=== PATIENT | female | born 1950 | race Asian ===

== ENCOUNTER 2021-10-16 15:45 | Inpatient (IN) | payer SELFPAY ==
[~2021-10-16] VITALS: Ht 152.4 cm; Wt 47.2 kg
[2021-10-16] MEDS ORDERED: SODIUM CHLORIDE 0.9% 500 ML IV ONE (16:30)
[2021-10-16] MEDS ORDERED: MORPHINE SULFATE 4 MG/ML CPJ (NOT FOR IM USE) IV STA (16:49)
[2021-10-16 16:57] LABS: HEMATOCRIT. 40.8 % (36.0-48.0); HEMOGLOBIN. 13.3 g/dL (12.0-16.0); MEAN CORPUSCULAR HEMOGLOBIN 30.4 pg (28.0-32.0); MEAN CORPUSCULAR VOLUME 93.3 fL (81.0-99.0); MEAN PLATELET VOLUME 9.1 fl (7.4-10.4); PLATELET 207 x1000/uL (130-400); RED BLOOD CELL COUNT 4.38 mill/uL (4.2-5.4); RED CELL DISTRIBUTION WIDTH 13.1 % (11.6-14.6)
[2021-10-16] MEDS ORDERED: LABETALOL HCL VIAL 20 MG/4 ML VIAL IV ONE (17:00)
[2021-10-16 17:08] LABS: CHLORIDE 101 mEq/L (98-107)
[2021-10-16] MEDS ORDERED: LABETALOL HCL VIAL 20 MG/4 ML VIAL IV NR (17:15)
[2021-10-16] MEDS ORDERED: CEFTRIAXONE 1 G PREMIX 50 ML IV NR (17:30)
[2021-10-16 17:54] LABS: ETHANOL BLOOD < 10 mg/dL
[2021-10-16 17:58] LABS: PLATELET ESTIMATE NORMAL
[2021-10-16 18:04] LABS: CLARITY URINE CLEAR (CLEAR); COLOR URINE YELLOW (YELLOW); KETONES URINE NEGATIVE (NEGATIVE); LEUKOCYTE ESTERASE URINE NEGATIVE (NEGATIVE); NITRITE URINE NEGATIVE (NEGATIVE); OCCULT BLOOD URINE TRACE (NEGATIVE); PROTEIN URINE 2+ (NEGATIVE); UROBILINOGEN URINE 0.2 E.U./dL (0.2-1.0)
[2021-10-16 18:16] LABS: *AMPHETAMINES SCREEN URINE NEGATIVE (NEGATIVE); *BARBITURATES SCREEN URINE NEGATIVE (NEGATIVE); *BENZODIAZEPINES SCREEN URINE NEGATIVE (NEGATIVE); *COCAINE SCREEN URINE NEGATIVE (NEGATIVE); CANNABINOID URINE SCREEN NEGATIVE (NEGATIVE); METHADONE URINE SCREEN NEGATIVE (NEGATIVE); OPIATES URINE SCREEN NEGATIVE (NEGATIVE); PHENCYCLIDINE URINE SCREEN NEGATIVE (NEGATIVE)
[2021-10-16] MEDS ORDERED: SODIUM CHLORIDE 0.9% 1,000 ML IV ONE (19:45)
[2021-10-16] MEDS ORDERED: VANCOMYCIN 1G PREMIX 200 ML IV NR (19:45)
[2021-10-16] MEDS ORDERED: CEFTRIAXONE 1 G PREMIX 50 ML IV ONE (21:45)
[2021-10-16] MEDS ORDERED: DOCUSATE SODIUM 100MG CAPSULE PO PRN (22:45)
[2021-10-16] MEDS ORDERED: MAGNESIUM/ALUMINUM HYDROXIDE/SIMETHICONE 30ML UDC PO PRN (22:45)
[2021-10-16] MEDS ORDERED: NITROGLYCERIN 0.4MG TABLET SL SL PRN (22:45)
[2021-10-16] MEDS ORDERED: GUAIFENESIN 200MG/10ML SUGAR FREE UDC PO PRN (22:45)
[2021-10-16] MEDS ORDERED: ACETAMINOPHEN 325MG TABLET PO PRN ×2 (22:45)
[2021-10-16] MEDS ORDERED: MORPHINE SULFATE 2 MG/ML CPJ (NOT FOR IM USE) IV PRN (22:45)
[2021-10-16] MEDS ORDERED: ONDANSETRON HCL 4MG/2ML INJ IV PRN (22:45)
[2021-10-16] MEDS ORDERED: TRAMADOL 50MG TABLET PO PRN (22:45)
[2021-10-16] MEDS ORDERED: IPRATROPIUM/ALBUTEROL 0.5-3(2.5)MG/3ML NEB NEB PRN (22:45)
[2021-10-16] MEDS ORDERED: KETOROLAC 15MG/ML VIAL IV PRN (22:45)
[2021-10-16] MEDS ORDERED: ZOLPIDEM TARTRATE 5MG TABLET PO PRN (22:45)
[2021-10-16] MEDS ORDERED: LEVOFLOXACIN 500MG PREMIX 100 ML IV SCH (23:45)
[2021-10-17 05:47] LABS: BASOPHILS % 0.3 % (0.0-2.0); HEMATOCRIT. 35.4 % (36.0-48.0); HEMOGLOBIN. 11.9 g/dL (12.0-16.0); LYMPHOCYTES % 7.8 % (20.0-50.0); MEAN CORPUSCULAR HEMOGLOBIN 31.1 pg (28.0-32.0); MEAN CORPUSCULAR VOLUME 92.6 fL (81.0-99.0); MEAN PLATELET VOLUME 8.9 fl (7.4-10.4); MONOCYTES % 5.8 % (2.0-8.0); NEUTROPHILS % 86.1 % (40.0-76.0); PLATELET 172 x1000/uL (130-400); RED BLOOD CELL COUNT 3.82 mill/uL (4.2-5.4); RED CELL DISTRIBUTION WIDTH 12.9 % (11.6-14.6)
[2021-10-17 05:49] LABS: CHLORIDE 98 mEq/L (98-107)
[2021-10-17 05:56] LABS: PHOSPHORUS 2.8 mg/dL (2.5-4.9)
[2021-10-17 06:21] LABS: FOLIC ACID (FOLATE) SERUM >20 ng/mL ng/mL (>5.38); VITAMIN B12 SERUM 1089 pg/mL (211-911)
[2021-10-17 06:39] LABS: CREATINE KINASE MB FRACTION 2.3 ng/mL (0.5-3.6)
[2021-10-17] MEDS: ENOXAPARIN 40MG/0.4ML SYR SUBCUT SCH (09:00)
[2021-10-17 09:35] VITALS: BP 168/83
[2021-10-17] MEDS: CLONIDINE 0.1MG TABLET PO PRN (10:38)
[2021-10-17] MEDS: AMLODIPINE 10MG TABLET PO SCH (10:38)
[2021-10-17] MEDS: FAMOTIDINE 20MG TABLET PO SCH (10:38)
[2021-10-17 12:00] VITALS: BP 119/67
[2021-10-17 15:55] LABS: CREATINE KINASE MB FRACTION 2.4 ng/mL (0.5-3.6)
[2021-10-17 16:00] VITALS: BP 124/72
[2021-10-17] MEDS ORDERED: BISACODYL 10MG SUPP PR PRN (19:00)
[2021-10-17 20:00] VITALS: BP 127/71
[2021-10-17] MEDS ORDERED: LEVOFLOXACIN 250MG PREMIX 50 ML IV SCH ×2 (21:00→23:00)
[2021-10-18] VITALS (7 sets, daily range): BP systolic 102–168; BP diastolic 54–90
[2021-10-18] MEDS: CLONIDINE 0.1MG TABLET PO PRN (05:47)
[2021-10-18] MEDS: FAMOTIDINE 20MG TABLET PO SCH (09:19)
[2021-10-18] MEDS: ENOXAPARIN 40MG/0.4ML SYR SUBCUT SCH (09:19)
[2021-10-18] MEDS: AMLODIPINE 10MG TABLET PO SCH (09:20)
[2021-10-18] MEDS ORDERED: LEVOFLOXACIN 250MG TABLET PO SCH (18:00)
== END 2021-10-18 19:00 | disposition home or self-care (01) | DRG 720 ==
LOC: ER 15:45 → EDBEDREQ 21:49 → EDBEDREQTM 21:49 → 8WST 22:01 → EDBEDREQ 22:09 → EDBEDREQTM 22:09 → ENRESERV 10-17 08:26
PROVIDERS: ADMIT Internal Medicine; ATTEND Internal Medicine
DX: A41.9 Sepsis, unspecified organism (principal); I10 Essential (primary) hypertension; S42.292A Other displaced fracture of upper end of left humerus, initial encounter for closed fracture; Z20.822 Contact with and (suspected) exposure to COVID-19; I16.1 Hypertensive emergency; W18.39XA Other fall on same level, initial encounter; Y93.89 Activity, other specified; Y92.89 Other specified places as the place of occurrence of the external cause; Y99.8 Other external cause status
CPT/HCPCS: 36415; 71045; 73030; 80053; 80061; 80305; 80307; 80320; 80329; 81003; 82140; 82550; 82553; 82607; 82746; 83036; 83540; 83550; 83605; 83735; 83880; 84100; 84443; 84484; 85025; 87426; 93005; 93970; 97116; 97162; 97166; 97535; 99291; C9803; J0696; J1650; J1956; J2270; J2405; J3370; J3490; J7040; G0480